=== PATIENT | male | born 1955 | race African-American/Black ===

== ENCOUNTER 2021-09-01 05:18 | Emergency (ER) | payer OTHER, MEDICAID ==
[~2021-09-01] VITALS: Ht 182.9 cm; Wt 100.0 kg
[2021-09-01] MEDS ORDERED: ALBUTEROL (0.083%) 2.5MG/3ML NEB HHN STA (06:14)
[2021-09-01 07:07] LABS: HEMATOCRIT. 43.4 % (42.0-52.0); HEMOGLOBIN. 14.9 g/dL (14.0-18.0); MEAN CORPUSCULAR HEMOGLOBIN 32.6 pg (28.0-32.0); MEAN CORPUSCULAR VOLUME 94.9 fL (80.0-94.0); MEAN PLATELET VOLUME 8.4 fl (7.4-10.4); PLATELET 340 x1000/uL (130-400); RED BLOOD CELL COUNT 4.57 mill/uL (4.7-6.1); RED CELL DISTRIBUTION WIDTH 13.8 % (11.6-14.6)
[2021-09-01 07:11] LABS: CHLORIDE 106 mEq/L (98-107)
[2021-09-01 09:00] VITALS: BP 138/93
[2021-09-01 09:05] LABS: PLATELET ESTIMATE NORMAL
[2021-09-01] MEDS ORDERED: AZIT250T12 PO (09:22)
[2021-09-01] MEDS ORDERED: IOHEXOL-350 100 ML BOTTLE ONE (09:39)
== END 2021-09-01 10:36 | disposition home or self-care (01) ==
LOC: ER 05:18
DX: J18.9 Pneumonia, unspecified organism (principal); Z98.890 Other specified postprocedural states
CPT/HCPCS: 36415; 71045; 71275; 74176; 80053; 83880; 84484; 85025; 85379; 93005; 94640; 99285; Q9967